=== PATIENT | male | born 1970 | race Caucasian/White ===

== ENCOUNTER 2020-02-13 11:26 | Emergency (ER) | payer BC, OTHER ==
[~2020-02-13] VITALS: Ht 180.3 cm; Wt 111.8 kg
[~2020-02-13 11:26] MED LIST: HYDR-3965 PO; HYDR-4383 PO; KETO-23 PO
[2020-02-13 11:54] VITALS: BP 148/107
[2020-02-13] MEDS ORDERED: TETanus/Pertussis (Acell)/Diphther VAC/PF (Tdap-Adult) 0.5ml syringe IMVAC ONE (12:00)
[2020-02-13] MEDS ORDERED: bacitracin 15gm ointment TP ONE (12:00)
[2020-02-13] MEDS ORDERED: LIDOcaine 1.5% w/epinephrine 1:200,000 5ml ampul IJ ONE (12:00)
[2020-02-13] MEDS ORDERED: LIDOcaine 1% W/epiNEPHrine 1:100,000 20ml vial IJ ONE (12:10)
[2020-02-13] MEDS ORDERED: CEPH250T PO (14:43)
== END 2020-02-13 15:09 | disposition home or self-care (01) ==
LOC: ER 11:27
DX: S06.0X1A Concussion with loss of consciousness of 30 minutes or less, initial encounter (principal); S01.01XA Laceration without foreign body of scalp, initial encounter; G89.29 Other chronic pain; F12.90 Cannabis use, unspecified, uncomplicated; Z87.442 Personal history of urinary calculi; Z72.89 Other problems related to lifestyle; Z98.890 Other specified postprocedural states; Z88.5 Allergy status to narcotic agent; Z79.899 Other long term (current) drug therapy; W01.0XXA Fall on same level from slipping, tripping and stumbling without subsequent striking against object, initial encounter; Y93.89 Activity, other specified; Y92.89 Other specified places as the place of occurrence of the external cause; Y99.8 Other external cause status
CPT/HCPCS: 12002; 70450; 90715; 99284